=== PATIENT | male | born 1975 | race Caucasian/White ===

== ENCOUNTER 2016-11-20 16:43 | Emergency (ER) | payer SELFPAY ==
[~2016-11-20] VITALS: Ht 170.2 cm; Wt 87.3 kg
[~2016-11-20 16:43] MED LIST: CIPR-9 PO; HUMIKIT SQ; HYDR-3516 PO; METR-1 PO
[2016-11-20 16:50] VITALS: BP 124/72; PULSE 123; RESP 16; TEMP 98.8; O2SAT 100
[2016-11-20] MEDS ORDERED: KETOROLAC TROMETHAMINE 30 MG/ML (IVP) VIAL IV PUSH ONE (17:15)
[2016-11-20] MEDS ORDERED: SERO200T PO (17:20)
[2016-11-20] MEDS ORDERED: DIAZ10 PO (17:20)
[2016-11-20 17:46] VITALS: BP 130/79; PULSE 102; RESP 18; O2SAT 100
--- NOTE | 2016-11-20 17:54 | PD ---
HPI Chief Complaint: Edema Time Seen by Provider: 17:07 Travel History International Travel<30 days: No Contact w/Intl Traveler<30days: No Traveled to known affect area: No History of Present Illness HPI 41 y/o male presents edema and pain to his bilateral ankles. He states it feels worse when he moves around. He denies other modifying factors. He denies any other concurrent complaints. He denies recurrent history of this. He states that the pain is mainly located around his ankle area but goes up into his leg little bit when he moves. This is been going on over the past couple of days. He denies any specific trauma. PFSH Past Medical History Anxiety: Yes Depression: Yes Heart Rhythm Problems: Yes (states hx of increased heart rate) Cancer: No Cardiovascular Problems: No Diminished Hearing: No Endocrine: No Gastrointestinal Disorders: Yes (crohn's disease) Genitourinary: Yes Musculoskeletal: No Psychiatric: Yes (PTSD) Respiratory: No Influenza Vaccination: Yes ?: Not Past Surgical History Abdominal Surgery: Yes (colon resection r/t chrons disease) Other Surgery: Yes (left groin hernia repair) Social History Alcohol Use: No (quit 6 months ago hx of etoh) Tobacco Use: Yes Substance Use: No Allergies-Medications (Allergen,Severity, Reaction): Coded Allergies: Sulfa (Sulfonamide Antibiotics) (Unverified Allergy, Severe, 11/20/16) amoxicillin (Unverified Allergy, Severe, 11/20/16) penicillin G (Unverified Allergy, Severe, 11/20/16) *MDRO Multi-Drug Resistant Organism (Verified Adverse Reaction, Unknown, ) 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 SKIN: Warm and dry. Small circular area of erythema to anterior aspect of left mid lower leg without associated abscess or draining involvement HEAD: Normocephalic and atraumatic. EYES: No injection or drainage. ENT: No nasal drainage noted. NECK: Supple, trachea midline. CARDIOVASCULAR: Regular rate and rhythm RESPIRATORY: No increased effort. No accessory muscle use. EXTREMITIES: Mild pedal edema to bilateral ankles with pain over this area, no calf pain but when you touch this area he states it makes his ankle area hurt, strong palpable dorsalis pedis pulse bilaterally, sensation intact, compartments soft NEUROLOGICAL: Awake and alert. Motor and sensory grossly within normal limits. Normal speech. Data Data Last Documented VS Vital Signs Date Time Temp Pulse Resp B/P (MAP) Pulse Ox O2 Delivery O2 Flow Rate FiO2 11/20/16 18:25 18 11/20/16 18:24 100 110/69 (83) 97 Room Air 11/20/16 16:50 98.8 Orders Orders Us Leg Venous Doppler Bilat (11/20/16 17:12) Complete Blood Count With Diff (11/20/16 17:12) Basic Metabolic Panel (Bmp) (11/20/16 17:12) Act Partial Throm Time (Ptt) (11/20/16 17:12) Prothrombin Time / Inr (Pt) (11/20/16 17:12) Iv Access Insert/Monitor (11/20/16 17:12) Ecg Monitoring (11/20/16 17:12) Oximetry (11/20/16 17:12) Ketorolac Inj (Toradol Inj) (11/20/16 17:15) Ankle, Complete (Thd2lru) (11/20/16 ) Ankle, Complete ([id number]) (11/20/16 ) Labs Laboratory Tests Test 11/20/16 17:40 White Blood Count 16.0 TH/MM3 Red Blood Count 4.93 MIL/MM3 Hemoglobin 12.6 GM/DL Hematocrit 38.5 % Mean Corpuscular Volume 78.2 FL Mean Corpuscular Hemoglobin 25.5 PG Mean Corpuscular Hemoglobin Concent 32.6 % Red Cell Distribution Width 15.6 % Platelet Count 351 TH/MM3 Mean Platelet Volume 7.4 FL Neutrophils (%) (Auto) 87.9 % Lymphocytes (%) (Auto) 4.9 % Monocytes (%) (Auto) 4.7 % Eosinophils (%) (Auto) 1.7 % Basophils (%) (Auto) 0.8 % Neutrophils # (Auto) 14.0 TH/MM3 Lymphocytes # (Auto) 0.8 TH/MM3 Monocytes # (Auto) 0.8 TH/MM3 Eosinophils # (Auto) 0.3 TH/MM3 Basophils # (Auto) 0.1 TH/MM3 CBC Comment DIFF FINAL Differential Comment Prothrombin Time 11.0 SEC Prothromb Time International Ratio 1.0 RATIO Activated Partial Thromboplast Time 23.7 SEC Blood Urea Nitrogen 6 MG/DL Creatinine 0.82 MG/DL Random Glucose 94 MG/DL Calcium Level 8.8 MG/DL Sodium Level 135 MEQ/L Potassium Level 3.7 MEQ/L Chloride Level 104 MEQ/L Carbon Dioxide Level 24.2 MEQ/L Anion Gap 7 MEQ/L Estimat Glomerular Filtration Rate 104 ML/MIN MDM Medical Decision Making Medical Screen Exam Complete: Yes Emergency Medical Condition: Yes Medical Record Reviewed: Yes (past history confirmed) Interpretation(s) CBC & BMP Diagram 11/20/16 17:40 Calcium Level 8.8 Last 24 hours Impressions Lower Extremity Ultrasound 11/20/16 1712 Signed Impressions: Service Date/Time: Sunday, November 20, 2016 17:53 - CONCLUSION: No evidence of DVT. Lance Rowley MD Ankle X-Ray 11/20/16 0000 Signed Impressions: Service Date/Time: Sunday, November 20, 2016 18:26 - CONCLUSION: Diffuse soft tissue swelling around the ankle. No acute fracture or joint dislocation is seen on the plain film. Lance Rowley MD Ankle X-Ray 11/20/16 0000 Signed Impressions: Service Date/Time: Sunday, November 20, 2016 18:30 - CONCLUSION: Soft tissue swelling along the lateral malleolus. No acute fracture or joint dislocation. Lance Rowley MD Differential Diagnosis Gout, arthritis, DVT, strain Narrative Course Will check blood work, x-ray, ultrasound and dose with Toradol and reevaluate Patient with mild leukocytosis with small area of likely beginning cellulitis to his left lower extremity without associated abscess given allergies Will place on clindamycin and have follow closely which she agrees to, Patient denies any new complaints and states that they are feeling better. Patient happy with care, all questions answered. Patient knows that follow up is incumbent on them and to return to the emergency room immediately if new or worsening symptoms develop. Patient given strict return precautions, vitals reviewed and are normal, agrees to further workup as an outpatient. Diagnosis Primary Impression: Ankle pain Qualified Codes: M25.571 - Pain in right ankle and joints of right foot; M25.572 - Pain in left ankle and joints of left foot Additional Impression: Edema of both ankles Patient Instructions: General Instructions Additional Instructions: Return as needed, follow with primary within 1-2 days, elevate feet at rest Med/Other Pt SpecificInfo: Prescription(s) given Scripts Clindamycin (Clindamycin) 300 Mg Cap 300 MG PO TID for Infection for 7 Days, CAP 0 Refills Prov: Gilda Emanuel MD 11/20/16 Disposition: 01 DISCHARGE HOME Condition: Stable Gilda Emanuel MD Nov 20, 2016 17:54
[2016-11-20 17:56] LABS: POTASSIUM 3.7 MEQ/L (3.5-5.1)
[2016-11-20 17:59] LABS: BICARBONATE 24.2 MEQ/L (21.0-32.0)
[2016-11-20 18:01] LABS: APTT (PATIENT) 23.7 SEC (24.3-30.1)
[2016-11-20 18:24] VITALS: BP 110/69; PULSE 100; RESP 18; O2SAT 97
[2016-11-20 18:25] VITALS: RESP 18
--- NOTE | 2016-11-20 18:33 | RADRPT ---
EXAM DATE/TIME: 11/20/2016 17:53 [facility] COMPARISON: No previous studies available for comparison. INDICATIONS : Edema. MEDICAL HISTORY : Crohn's disease. post traumatic stress disorder. SURGICAL HISTORY : Left inguinal hernia repair. Left shoulder rotator cuff repair. ENCOUNTER: Initial ACUITY: 1 day PAIN SCORE: 10/10 LOCATION: Bilateral legs. TECHNIQUE: Venous ultrasound of the left and right leg was performed from the inguinal ligament to the proximal calf. Real-time, color Doppler and spectral tracing, compression and augmentation techniques were us ed. FINDINGS: RIGHT LEG: There is normal compressibility of the deep venous system from the inguinal region to the proximal ca lf. No echogenic clot is seen in the lumen of the common femoral, femoral, popliteal, and posterior tibial veins. There is a normal response of the venous system to proximal and distal augmentation an d respiration. LEFT LEG: There is normal compressibility of the deep venous system from the inguinal region to the proximal ca lf. No echogenic clot is seen in the lumen of the common femoral, femoral, popliteal, and posterior tibial veins. There is a normal response of the venous system to proximal and distal augmentation an d respiration. CONCLUSION: No evidence of DVT. Lance Rowley MD on November 20, 2016 at 18:31 Board Certified Radiologist. This report was verified electronically.
--- NOTE | 2016-11-20 18:45 | RADRPT ---
EXAM DATE/TIME: 11/20/2016 18:26 [facility] COMPARISON: No previous studies available for comparison. INDICATIONS : Right ankle pain, burning, and swelling. No known injury. MEDICAL HISTORY : Crohn's disease. SURGICAL HISTORY : None. ENCOUNTER: Initial ACUITY: 2 days PAIN SCORE: 8/10 LOCATION: Right ankle. FINDINGS: Three view exam was performed of the right ankle. The bony structures are in normal alignment. No e vidence of fracture, dislocation. There is diffuse soft tissue swelling around the ankle. The ankle mortise is intact. No radiopaque foreign bodies are seen. Bony mineralization is normal. CONCLUSION: Diffuse soft tissue swelling around the ankle. No acute fracture or joint dislocation is seen on the plain film. Lance Rowley MD on November 20, 2016 at 18:43 Board Certified Radiologist. This report was verified electronically.
--- NOTE | 2016-11-20 18:46 | RADRPT ---
EXAM DATE/TIME: 11/20/2016 18:30 [facility] COMPARISON: No previous studies available for comparison. INDICATIONS : Left ankle pain, burning, and swelling. No known injury. MEDICAL HISTORY : Crohn's disease. SURGICAL HISTORY : None. ENCOUNTER: Initial ACUITY: 2 days PAIN SCORE: 7/10 LOCATION: Left ankle. FINDINGS: Three view exam was performed of the left ankle. The bony structures are in normal alignment. No ev idence of fracture, dislocation. There is soft tissue swelling along the lateral malleolus. The ankl e mortise is intact. No radiopaque foreign bodies are seen. Bony mineralization is normal. CONCLUSION: Soft tissue swelling along the lateral malleolus. No acute fracture or joint dislocation. Lance Rowley MD on November 20, 2016 at 18:44 Board Certified Radiologist. This report was verified electronically.
[2016-11-20 18:47] LABS: BASOPHIL # 0.1 TH/MM3 (0-0.2); BASOPHIL % 0.8 % (0.0-2.0); EOSINOPHIL # 0.3 TH/MM3 (0-0.4); EOSINOPHIL % 1.7 % (0.0-4.0); HEMATOCRIT 38.5 % (39.0-51.0); LYMPH % 4.9 % (9.0-44.0); LYMPHOCYTE # 0.8 TH/MM3 (1.0-4.8); MEAN CELL VOLUME 78.2 FL (80.0-100.0); MEAN CORPUSCULAR HEMOGLOBIN 25.5 PG (27.0-34.0); MEAN CORPUSCULAR HGB CONC 32.6 % (32.0-36.0); MONO % 4.7 % (0.0-8.0); NEUT % 87.9 % (16.0-70.0); PLATELET COUNT 351 TH/MM3 (150-450); RED BLOOD COUNT 4.93 MIL/MM3 (4.50-5.90); RED CELL DISTRIBUTION WIDTH 15.6 % (11.6-17.2)
[2016-11-20 18:48] LABS: HEMO FLAGS DIFF FINAL
[2016-11-20] MEDS ORDERED: CLIN1CAP6 PO (18:51)
[2016-11-20 19:10] VITALS: BP 114/71
== END 2016-11-20 19:34 | disposition home or self-care (01) ==
LOC: PHED 16:43
DX: M25.571 Pain in right ankle and joints of right foot (principal); M25.572 Pain in left ankle and joints of left foot; R60.0 Localized edema; K50.90 Crohn's disease, unspecified, without complications
CPT/HCPCS: 73610; 80048; 85025; 85610; 85730; 93970; 96374; 99285; J1885